=== PATIENT | female | born 1995 | race Caucasian/White ===

== ENCOUNTER 2017-04-26 09:33 | Emergency (ER) | payer OTHER ==
[~2017-04-26] VITALS: Ht 152.4 cm; Wt 77.0 kg
[~2017-04-26 09:33] MED LIST: AUGMENTIN875 MG PO; PRENATAL VITAM1 EAC7 PO; ZOFRAN ODT4 MG PO
[2017-04-26 10:29] LABS: ALBUMIN 4.7 G/DL (3.2-4.8); CHLORIDE 106 MEQ/L (99-109); POTASSIUM 3.8 MEQ/L (3.7-5.4); SODIUM 138 MEQ/L (136-147); TOTAL BILIRUBIN 0.8 MG/DL (0.0-1.0)
[2017-04-26 10:34] LABS: ALKALINE PHOSPHATASE 74 IU/L (3-129); ALT (GPT) 14 IU/L (3-49); AST (GOT) 15 IU/L (2-34); CREATININE 0.6 MG/DL (0.6-1.3); GFR ESTIMATE (CALCULATED) > 59 mL/min/; GLUCOSE 108 mg/dL (70-99); UREA NITROGEN (BUN) 8 mg/dL (9-23)
[2017-04-26 10:42] LABS: QUANTITATIVE HCG < 4.0 MIU/ML
[2017-04-26 10:44] LABS: APPEARANCE CLOUDY ((CLEAR)); BILIRUBIN NEGATIVE; BLOOD SMALL; COLOR YELLOW ((YELLOW)); GLUCOSE (STRIP) NEGATIVE; KETONES 20; LEUKOCYTES NEGATIVE; NITRITE NEGATIVE; PROTEIN (STRIP) 30; SPECIFIC GRAVITY 1.027 (1.000-1.030); UROBILINOGEN 0.2 MG/DL (0.2-1.0)
[2017-04-26 10:59] LABS: LIPASE 9 U/L (1.0-51.0)
[2017-04-26 11:14] LABS: EPITHELIAL CELLS 3+ /HPF; MUCUS 1+ /LPF; RED BLOOD CELLS 0-5 /HPF (0-5); WHITE BLOOD CELLS 0-5 /HPF (0-5)
[2017-04-26 11:15] LABS: BACTERIA 2+ /HPF; UCUL ADDED? YES
[2017-04-26 12:23] LABS: HEMATOCRIT 38.3 % (36.0-46.0); HEMOGLOBIN 12.7 G/DL (11.9-15.5); MCH 28.2 PG (29.0-34.0); MCHC 33.2 G/DL (30.0-36.0); MCV 85.1 FL (83-99); PLATELET COUNT 443 K/uL (156-360); RBC DIS.WIDTH-CV 13.1 % (11.8-14.6); RBC DIS.WIDTH-SD 40.5 % (39-53); WHITE BLOOD COUNT 14.4 K/uL (4.1-10.2)
[2017-04-26] MEDS ORDERED: ZOFRAN4 MG PO (13:21)
[2017-04-26 14:04] VITALS: BP 121/72
== END 2017-04-26 14:07 | disposition home or self-care (01) ==
LOC: EME 09:33
DX: K29.70 Gastritis, unspecified, without bleeding (principal); Z91.040 Latex allergy status; F41.9 Anxiety disorder, unspecified; K21.9 Gastro-esophageal reflux disease without esophagitis
CPT/HCPCS: 76705; 80053; 81003; 83690; 84702; 85027; 87086; 99281; 99285; J2270; J2405; J7030